=== PATIENT | male | born 1965 | race Caucasian/White ===

== ENCOUNTER → 2021-05-21 | Outpatient (CLI) | payer BC ==
[~2021-05-21] MED LIST: ACID REDUCER200 MG PO; ATROVENT-HFA12.9 GM INH; COREG 25MG TAB25 MG PO; DELSYM30 MG/5 ML PO; ELIQUIS5 MG PO; FENOFIBRATE145 MG PO; FLEXERIL 10 MG10 MG PO; FLONASE ALLER15.8 ML; FLOVENT DISKUS50 MCG INH; LIPITOR TAB 2020 MG PO; LISINOPRIL40 MG PO; LOVAZA1 GM PO; METOPROLOL TART25 MG PO; NORVASC10 MG PO; ZANTAC150 MG PO
[2021-05-21 11:15] LABS: HEMOGLOBIN 16.9 gm/dl (14.0-17.5); RED BLOOD COUNT 5.47 M/UL (4.20-5.50); WHITE BLOOD COUNT 14.2 K/UL (4.5-11.0)
[2021-05-21 11:30] LABS: BUN/CREATININE RATIO 22 (0-10)
== END ==
LOC: LAB 10:02
PROVIDERS: Family Medicine
DX: D69.2 Other nonthrombocytopenic purpura (principal)
CPT/HCPCS: 36415; 80053; 85025

== ENCOUNTER 2021-06-13 06:48 | Emergency (ER) | payer BC ==
[~2021-06-13] VITALS: Ht 177.8 cm; Wt 95.3 kg
[~2021-06-13 06:48] MED LIST changes: -ATROVENT-HFA12.9 GM INH; -DELSYM30 MG/5 ML PO; -FLONASE ALLER15.8 ML
[2021-06-13 08:24] LABS: HEMOGLOBIN 17.3 gm/dl (14.0-17.5); RED BLOOD COUNT 5.61 M/UL (4.20-5.50); WHITE BLOOD COUNT 6.4 K/UL (4.5-11.0)
[2021-06-13 09:09] LABS: BUN/CREATININE RATIO 17 (0-10)
[2021-06-13] MEDS ORDERED: ATROVENT-HFA12.9 GM INH (09:54)
[2021-06-13] MEDS ORDERED: FLONASE ALLER15.8 ML (09:54)
[2021-06-13] MEDS ORDERED: DELSYM30 MG/5 ML PO (09:54)
== END 2021-06-13 10:45 | disposition home or self-care (01) ==
LOC: ER1 06:48
PROVIDERS: Physician Assistant Medical
DX: U07.1 COVID-19 (principal); I11.9 Hypertensive heart disease without heart failure; F17.210 Nicotine dependence, cigarettes, uncomplicated
CPT/HCPCS: 71045; 80053; 85025; 99283

== ENCOUNTER → 2022-01-08 | Outpatient (CLI) | payer BC ==
[~2022-01-08] MED LIST changes: +ATROVENT-HFA12.9 GM INH; +DELSYM30 MG/5 ML PO; +FLONASE ALLER15.8 ML
== END ==
LOC: CT 08:28
DX: K86.3 Pseudocyst of pancreas (principal); M48.54XA Collapsed vertebra, not elsewhere classified, thoracic region, initial encounter for fracture; M47.9 Spondylosis, unspecified; I25.10 Atherosclerotic heart disease of native coronary artery without angina pectoris; R91.1 Solitary pulmonary nodule; N28.1 Cyst of kidney, acquired; N28.9 Disorder of kidney and ureter, unspecified; K40.90 Unilateral inguinal hernia, without obstruction or gangrene, not specified as recurrent
CPT/HCPCS: Q9967